=== PATIENT | male | born 1960 | race Caucasian/White ===

== ENCOUNTER 2025-06-13 10:38 | Emergency (ER) | payer OTHER, SELFPAY ==
[2025-06-13 10:40] VITALS: BP 154/101
[2025-06-13 11:07] LABS: Urine Character Slightly Cloudy (Clear)
--- NOTE | 2025-06-13 11:11 | ED.GENMED ---
History of Present Illness
General
Chief Complaint: Abdominal Pain
Source: patient
Exam Limitations: none
Time Seen by Provider: 06/13/25 11:01
History of Present Illness
History of Present Illness:
64yoM with a history of hypertension presenting with his for evaluation of abdominal pain. He reports pain throughout his lower abdomen for the past 3 days. Pain initially woke him up from sleep. He had nausea and dry heaving initially but
has not had any since. He is also constipated and has not had a bowel movement in several days despite taking laxatives. He believes he has a bowel obstruction. No prior history of obstructions and no prior abdominal surgeries. He denies any
vomiting, difficulty urinating, testicular pain. Last colonoscopy was about 12 years ago which showed some polyps.
Phy Exam
General Physical Exam
General Presentation: well appearing and no apparent distress
General Skin: warm and dry
General Habitus: normal
General Mental: alert
ENT Exam
ENT Exam: normocephalic
Pulmonary Exam
Pulmonary Exam: no respiratory distress
Gastrointestinal Exam
Gastrointestinal Exam: soft, non distended and other (+Tenderness throughout lower abdomen. No rebound or guarding.)
Neurological Exam
Neurological Exam: alert
Brooks Coma Scale
Eye Opening: Spontaneous
Verbal Response: Oriented
Motor Response: Obeys Commands
GCS Total Score: 15
Skin Exam
Skin Exam: normal color and warm/dry
Psychiatric Exam
Psychiatric Exam: normal mood/affect
Course
Orders/Labs/Results
Orders:
Orders
06/13/25 10:50
Urinalysis Reflex To Culture Urgent
Date Specimen was Collected: 06/13/25
Time Specimen was Collected: 10:44
Urine Microscopic Reflex Cult Urgent
Urine Culture Urgent
PALAK Source: U
Specimen Description:
Date Specimen was Collected: 06/13/25
Time Specimen was Collected: 10:44
06/13/25 11:10
CT Abd/pelvis W Iv Cont Urgent
Comment:
Reason For Exam: lower abdominal pain, constipation
0.9% Sodium Chloride 1000 ml [Nss] 1,000 ml IV BOLUS
Ketorolac [Toradol] 15 mg IV NOW STA
06/13/25 11:17
Complete Blood Count/With Diff Urgent
Comprehensive Metabolic Panel Urgent
Lipase Urgent
06/13/25 11:58
CR Chest - 2 Views Urgent
Comment:
Reason For Exam: hypoxia
Abnormal Lab Results
06/13/25 06/13/25
10:50 11:17
WBC 15.0 H 10^3/uL
(4.8-10.8)
MCH 31.4 H pg
(27.0-31.0)
Abs Immat Gran (auto) 0.1 H 10^3/uL
(0-0.05)
Absolute Neuts (auto) 12.6 H 10^3/uL
(1.4-6.5)
Absolute Monos (auto) 1.1 H 10^3/uL
(0.1-0.6)
Neutrophils % 83.6 H %
(42.2-75.2)
Lymphocytes % 8.7 L %
(20.5-51.1)
Creatinine 1.5 H mg/dL
(0.7-1.3)
Glucose 142 H mg/dl
(70-99)
Total Bilirubin 2.0 H mg/dl
(0.2-1.3)
Ur Occult Blood Reflex 4+ A
(Negative)
Leukocyte Esterase Rfl 2+ A
(Negative)
Urine RBC 16-20 A /HPF
(0-2)
Urine WBC (Reflex) 21-25 A /HPF
(0-5)
Urine Bacteria (Reflex) Few A
(Negative)
Urine Albumin (Reflex) 2+ A
(Neg - Trace)
06/13/25 11:17
06/13/25 11:17
Vital Signs
Initial and Last Documented VS:
Initial Vital Signs
Temp Pulse Resp BP Pulse Ox
98.7 F 95 20 154/101 95
06/13/25 10:40 06/13/25 10:40 06/13/25 10:40 06/13/25 10:40 06/13/25 10:40
Last Documented Vital Signs
Temp Pulse Resp BP Pulse Ox
98.6 F 82 20 136/81 99
06/13/25 14:26 06/13/25 14:26 06/13/25 14:26 06/13/25 14:26 06/13/25 14:26
MDM/Problems Addressed
Differential Diagnosis Includes:
64yoM here with lower abd pain x 3 days. Also feels constipated. VSS. He is well appearing in no distress. No signs of peritonitis on abdominal exam. Differential diagnosis includes: diverticulitis, constipation, consider SBO although he has no risk
factors
Initial ED plan: Check abdominal labs, UA, and CT abdomen with IV contrast. IV Toradol and fluid bolus for symptoms.
*Pulse Oximetry
SaO2: 95
Oxygen Mode of Delivery: Room air
Patient hypoxic: no
*Critical Care Note
Total Time (30-74mins, 75-104mins- exclusive of procedures): Not Applicable
Update Note
Update Note:
CT shows findings suspicious for rupture of the left renal pelvis with urinoma along psoas muscle. No opacified stone visualized. Creatinine is 1.5, unclear baseline as there are no prior labs to compare to. Leukocytosis present with WBC of 15. 4+
blood on urinalysis and 2+ leukocytes. Discussed case with urology who recommends ultrasound.
Initial plan was for admission. Admitting team came to see patient but he is now requesting to leave. His grthpsf-cw-lge is Dr. Landen Hope who is a urologist at [facility] who will assume care of patient. I spoke with him on
the phone and he is planning to repeat CT without contrast tomorrow. Patient started on Cipro and given a prescription for Tramadol per his request. Several incidental findings noted on imaging including renal lesions and densities in thoracic spine
which patient was notified of and copy of radiology report given. ED return precautions reviewed and he was discharged in stable condition.
ED Attending Note
-
Portions of this chart may have been created with voice recognition software.� Occasional wrong word or��sound alike� substitutions may have occurred due to the inherent limitations of voice recognition software.
Discharge Plan
Departure
Patient Disposition: Home (Routine Discharge)
Date of Disposition: 06/13/25
Time of Disposition: 13:27
Patient with high blood pressure during this ER visit?: Yes
Discharge Problem:
Urinoma, Rupture of renal pelvis, Renal lesion
Instructions: Hydronephrosis in adults
Prescriptions:
New
ciprofloxacin HCl [Cipro] 500 mg tablet
500 mg PO BID Qty: 14 0RF
tramadol 50 mg tablet
50 mg PO Q6H PRN (Reason: Pain) Qty: 12 0RF
No Action
lisinopril 10 mg Tablet
10 mg PO DAILY
Referrals:
Sanchez Combs MD [Family Provider, Family Practice]
Activity Restrictions/Additional Instructions:
Take antibiotics prescribed. Take Tramadol only as needed for severe breakthrough pain.
Please follow-up with urology. Return to the ER with any worsening symptoms including fevers.
Interventions
Interventions:
*Risk Screen - Suicide Last Done: 06/13/25 10:40
*General Assessment Last Done: 06/13/25 10:40
*Neglect/Abuse Screening Last Done: 06/13/25 10:40
*ED- Fall Risk Assessment Last Done: 06/13/25 11:30
*ED COVID-19 Vaccine History Last Done: 06/13/25 11:30
*ED Influenza Vaccine History Last Done: 06/13/25 11:30
*Nursing Disposition Last Done: 06/13/25 14:27
QO-Rwzhwl-Ultiocajzo Assessment Last Done: 06/13/25 11:30
Discharge Date and Time
Discharge Date/Time: 06/13/25 14:37
Print Language: [place]
[2025-06-13 11:14] VITALS: BP 149/83
[2025-06-13 11:18] VITALS: BMI 29.0
[2025-06-13 11:19] VITALS: BP 149/83
[2025-06-13] MEDS: NSS 1000 IV (11:22)
[2025-06-13] MEDS: TORADOL 15 MG IV (11:22)
[2025-06-13 11:26] LABS: Urine Red Blood Cell 16-20 /HPF (0-2); Urine Squamous Cell None seen /LPF (Few); Urine White Cell 21-25 /HPF (0-5)
[2025-06-13 11:34] LABS: Hematocrit 49.5 % (39.0-52.0); Hemoglobin 16.9 g/dL (13.0-18.0); Mean Corp Hgb Conc. 34.1 g/dL (33.0-37.0); Mean Corpuscular Volume 92.0 fL (80.0-94.0); Nucleated Red Blood Cells % 0 % (-); Platelet Count 247 10^3/uL (130-400); Red Cell Dist. Width 12.5 % (11.5-14.5)
--- NOTE | 2025-06-13 11:47 | EDRN ---
this RN noticed that the pt is on RA and p02 is 88-92%, this RN notified Sasha CAN, no c/o SOB, no c/o chest pain, no c/o cough
[2025-06-13 12:00] VITALS: BP 139/80
[2025-06-13 12:00] LABS: ALT (SGPT) 37 U/L (0-50); AST (SGOT) 31 U/L (17-59); Albumin 4.6 g/dl (3.5-5.0); Alkaline Phosphatase 76 U/L (38-126); Blood Urea Nitrogen 19 mg/dl (9-20); Calcium 9.2 mg/dl (8.4-10.2); Carbon Dioxide 25 mmol/L (22-30); Chloride 102 mmol/L (98-107); Estimated Creatinine Clearance 57 ml/min; Glucose 142 mg/dl (70-99); Lipase 69 U/L (23-300); Potassium 4.3 mmol/L (3.5-5.1); Sodium 136 mmol/L (135-145); Total Protein 7.4 g/dl (6.3-8.2); eGFR 51.99
--- NOTE | 2025-06-13 13:33 | HPS.HSE ---
Family Physician
-
Family Physician: Sanchez Combs
Chief Complaint
-
Abdominal pain x 3 days, nausea, dry heaves, constipation
History of Present Illness
64-year-old male complaining of abdominal pain throughout his lower abdomen over the past 3 days. He reports nausea, dry heaving 3 days ago along with constipation no bowel movement in several days despite taking laxatives. He denies fever,
chills, chest pain, palpitations, cough, shortness of breath, vomiting, urinary symptoms. He has past medical history of hypertension, colonic polyps 12 years ago via colonoscopy. In the ER on CT he was noted to have left renal pelvis rupture with
urinoma to the left psoas muscle. Urology was made aware by ER attending.
Medical History
Past Medical History
Past Medical History: Reports HTN
Allergies / Home Medications
Allergies reflects when Allergies were last updated in [facility] [facility].
Home Medications with original date entered in [facility] [facility]
Physical Exam
Vital Signs
Vital Signs
Temp Pulse Resp BP Pulse Ox
98.6 F 98 16 149/83 91
06/13/25 11:19 06/13/25 11:19 06/13/25 11:19 06/13/25 11:19 06/13/25 11:19
Laboratory Results
-
06/13/25 11:17
06/13/25 11:17
Laboratory Results
Total Bilirubin 2.0 mg/dl (0.2-1.3) H 06/13/25 11:17
AST 31 U/L (17-59) 06/13/25 11:17
ALT 37 U/L (0-50) 06/13/25 11:17
Alkaline Phosphatase 76 U/L (38-126) 06/13/25 11:17
Lipase 69 U/L (23-300) 06/13/25 11:17
Impression/Plan
-
Impression/plan:
Admit to telemetry
#Sepsis 2/2 left renal pelvis rupture with urinoma along left psoas muscle
WBC 15 with left shift, HR 98, 149/83, 98 6F
UA WBC 21�25, few bacteria, occult blood +4, leukocyte +2
- Consult urology
- Renal ultrasound
- Follow urine culture
- IV Rocephin
-Follow CBC, CMP
CT abdomen pelvis with IV contrast:
1. Bilateral renal cysts as well as additional bilateral slightly low-attenuation renal lesions, as detailed above, not compatible with simple cysts.
These slightly low-attenuation lesions could represent proteinaceous/complex cysts. Solid masses/malignancy cannot be excluded.
2. Prompt right renal excretion. Delayed left renal excretion with findings suspicious for rupture of the left renal pelvis with opacified urine extending into the left pararenal retroperitoneal region along the
left psoas muscle suggesting an elongated urinoma with accompanying soft tissue stranding. No radiopaque calculus seen at the left ureteropelvic junction, cannot exclude other etiologies such as mass.
Urgent Urology consultation recommended.
3. Few scattered small sclerotic densities in the lower thoracic spine, lumbar spine and bony pelvis, nonspecific, cannot exclude sclerotic bony metastatic disease versus benign etiologies such as multiple bone islands.
4. Several hepatic simple cysts as well as one subcentimeter low-attenuation left lobe hepatic lesion too small to characterize.
5. Subcentimeter low-attenuation splenic lesions too small to characterize
CXR: Low lung volumes. Minor bibasilar opacity compatible with subsegmental atelectasis
#Renal insufficiency
Creat 1.5 CrCl 57 no prior labs
Will follow BMP given left renal pelvis rupture/urinoma
#HTN�benign
BP 149/83
Hold lisinopril 10 mg daily
DVT prophylaxis
Subcu heparin
Full code
--- NOTE | 2025-06-13 14:12 | EDRN ---
Sasha CAN was at the pts bedside and the pt stated that he wanted to leave and get his care elsewhere, the pt stated that the staff in the ED was 'great' however he wants to get treated where his brother in law is a urologist and can get
care from his brother in law
[2025-06-13 14:26] VITALS: BP 136/81
== END 2025-06-13 14:37 | disposition home or self-care (01) ==
LOC: EMR 10:38
PROVIDERS: Physician Assistant; EMERGENCY PHYSICIAN Emergency Medicine; FAMILY PHYSICIAN Family Medicine
DX: R10.30 Lower abdominal pain, unspecified (principal); R11.0 Nausea; K59.00 Constipation, unspecified; N28.1 Cyst of kidney, acquired; N36.8 Other specified disorders of urethra; K76.89 Other specified diseases of liver; I10 Essential (primary) hypertension; Z88.0 Allergy status to penicillin
CPT/HCPCS: 99285; 96361; 96374; 71046; 74177; 80053; 81003; 81015; 83690; 85025; 87086; Q9967